=== PATIENT | female | born 1985 | race Caucasian/White ===

== ENCOUNTER 2025-01-09 09:11 | Outpatient (CLI) | payer OTHER | END 2025-01-09 09:12 | disposition home or self-care (01) | LOC: CSHMAMMO 09:11 | PROVIDERS: ATTEND Physician Assistant | DX: N63.21 Unspecified lump in the left breast, upper outer quadrant (principal); N64.4 Mastodynia; Z80.3 Family history of malignant neoplasm of breast; N60.02 Solitary cyst of left breast | CPT/HCPCS: 77066; G0279 ==

== ENCOUNTER 2025-04-09 11:24 | Outpatient (CLI) | payer OTHER | END 2025-04-09 11:25 | disposition home or self-care (01) | LOC: CSHULT 11:24 | PROVIDERS: ATTEND Physician Assistant | DX: N63.21 Unspecified lump in the left breast, upper outer quadrant (principal) ==

== ENCOUNTER → 2025-04-09 | Day surgery (SDC) | payer OTHER | LOC: CSHULT 12:00 | PROVIDERS: ATTEND Physician Assistant | PROC: 0H9U0ZX Drainage of Left Breast, Open Approach, Diagnostic (ICD-10-PCS; principal; 2025-04-09) | DX: C50.412 Malignant neoplasm of upper-outer quadrant of left female breast (principal); Z17.1 Estrogen receptor negative status [ER-]; Z17.22 Progesterone receptor negative status; Z17.32 Human epidermal growth factor receptor 2 negative status | CPT/HCPCS: 19083; 88305; 88341; 88342; 88361; A4648 ==